=== PATIENT | female | born 1985 | race Caucasian/White ===

== ENCOUNTER 2021-05-09 02:56 | Emergency (ER) | payer MEDICAID ==
[~2021-05-09] VITALS: Ht 162.6 cm; Wt 96.4 kg
[2021-05-09 03:29] VITALS: BP 144/66
[2021-05-09] MEDS ORDERED: LIDOcaine 1% W/epiNEPHrine 1:200,000 10ml vial IJ ONE (04:45)
[2021-05-09] MEDS ORDERED: naproxen 500mg tablet PO ONE (05:05)
[2021-05-09] MEDS ORDERED: NAPR-56 PO (05:05)
== END 2021-05-09 05:14 | disposition home or self-care (01) ==
LOC: ER 02:57
DX: M25.512 Pain in left shoulder (principal); M79.18 Myalgia, other site; J45.909 Unspecified asthma, uncomplicated; F12.90 Cannabis use, unspecified, uncomplicated; Z79.899 Other long term (current) drug therapy
CPT/HCPCS: 20552; 99284